=== PATIENT | female | born 1990 | race African-American/Black ===

== ENCOUNTER 2019-03-16 05:51 | Emergency (ER) | payer MEDICAID ==
[~2019-03-16] VITALS: Ht 160 cm; Wt 72.0 kg
[2019-03-16 07:56] VITALS: BP 121/63
[2019-03-16] MEDS ORDERED: ACETAMINOPHEN 325MG TABLET PO ONE (08:30)
== END 2019-03-16 09:22 | disposition left against medical advice (07) ==
LOC: ER 05:51
DX: S00.81XA Abrasion of other part of head, initial encounter (principal); R42 Dizziness and giddiness; M54.2 Cervicalgia; M25.512 Pain in left shoulder; M25.511 Pain in right shoulder; V43.52XA Car driver injured in collision with other type car in traffic accident, initial encounter; Y93.89 Activity, other specified; R07.0 Pain in throat; Y07.03 Male partner, perpetrator of maltreatment and neglect; X99.0XXA Assault by sharp glass, initial encounter; Y92.488 Other paved roadways as the place of occurrence of the external cause
CPT/HCPCS: 99283

== ENCOUNTER 2024-05-19 10:16 | Emergency (ER) | payer MEDICAID ==
[~2024-05-19] VITALS: Ht 165.1 cm; Wt 75.0 kg
[2024-05-19 10:25] VITALS: BP 121/80; PULSE 93; RESP 18; TEMP 98.5; O2SAT 100
[2024-05-19 11:04] LABS: BASOPHILS % 0.4 % (0.0-2.0); EOSINOPHILS % 0.7 % (0.0-5.0); HEMATOCRIT. 39.4 % (36.0-48.0); HEMOGLOBIN. 12.9 g/dL (12.0-16.0); LYMPHOCYTES % 32.7 % (20.0-50.0); MEAN CORPUSCULAR HEMOGLOBIN 31.2 pg (28.0-32.0); MEAN CORPUSCULAR HGB CONC 32.8 g/dL (31.0-37.0); MEAN CORPUSCULAR VOLUME 95.1 fL (81.0-99.0); MEAN PLATELET VOLUME 8.6 fl (7.4-10.4); MONOCYTES % 6.8 % (2.0-8.0); NEUTROPHILS % 59.4 % (40.0-76.0); PLATELET 227 x1000/uL (130-400); RED BLOOD CELL COUNT 4.14 mill/uL (4.2-5.4); RED CELL DISTRIBUTION WIDTH 13.9 % (11.6-14.6); WHITE BLOOD COUNT 7.5 x1000/uL (4.5-11.0)
[2024-05-19 11:12] LABS: CHLORIDE 109 mEq/L (98-107); SODIUM 141 mEq/L (136-145)
[2024-05-19 11:13] LABS: CALCIUM 8.9 mg/dL (8.7-10.4); CARBON DIOXIDE 26 mEq/L (21-32)
[2024-05-19 11:18] LABS: CREATININE 0.7 mg/dL (0.6-1.0); GLUCOSE 103 mg/dL (70-105); UREA NITROGEN BLOOD 6 mg/dL (9-23)
[2024-05-19 11:19] LABS: ETHANOL BLOOD 90 mg/dL (<10)
[2024-05-19 11:20] LABS: ACETAMINOPHEN < 2 ug/mL (10-30); ALANINE AMINOTRANSFERASE 9 IU/L (10-49); ALBUMIN 4.7 g/dL (3.2-4.8); ASPARTATE AMINOTRANSFERASE 20 IU/L (<34); BILIRUBIN TOTAL 0.5 mg/dL (0.1-1.0)
[2024-05-19 11:21] LABS: PROTEIN TOTAL 7.6 g/dL (6.0-8.3)
[2024-05-19 11:36] LABS: HCG SCREEN NEGATIVE
[2024-05-19] MEDS: ONDANSETRON 4MG ODT PO STA (11:45)
[2024-05-19] MEDS: SODIUM CHLORIDE 0.9% 1,000 ML IV ONE (12:25)
[2024-05-19] MEDS: DICYCLOMINE 10 MG/5 ML ORAL SYR PO STA (13:56)
[2024-05-19] MEDS: DICYCLOMINE HCL 10MG CAPSULE PO NR (13:56)
[2024-05-19 14:32] LABS: CLARITY URINE CLOUDY (CLEAR); COLOR URINE YELLOW (YELLOW); GLUCOSE URINE NEGATIVE (NEGATIVE); KETONES URINE NEGATIVE (NEGATIVE); LEUKOCYTE ESTERASE URINE NEGATIVE (NEGATIVE); NITRITE URINE NEGATIVE (NEGATIVE); OCCULT BLOOD URINE 3+ (NEGATIVE); PROTEIN URINE NEGATIVE (NEGATIVE); SPECIFIC GRAVITY URINE 1.019 (1.005-1.030); UROBILINOGEN URINE 0.2 E.U./dL (0.2-1.0)
[2024-05-19 14:52] LABS: BACTERIA URINE 3+; MUCUS URINE TRACE /lpf (< = 2+); SQUAMOUS EPITHELIAL CELL URINE 3+ /lpf (RARE/1+)
[2024-05-19 14:53] LABS: RBC URINE 0-2 /hpf (0-2); WBC URINE 0-2 /hpf (0-2)
[2024-05-19 14:57] LABS: *AMPHETAMINES SCREEN URINE PRESUMPTIVE POSITIVE (NEGATIVE); *BARBITURATES SCREEN URINE NEGATIVE (NEGATIVE); *BENZODIAZEPINES SCREEN URINE PRESUMPTIVE POSITIVE (NEGATIVE); *COCAINE SCREEN URINE PRESUMPTIVE POSITIVE (NEGATIVE)
[2024-05-19 14:58] LABS: CANNABINOID URINE SCREEN PRESUMPTIVE POSITIVE (NEGATIVE); ECSTASY MDMA SCREEN URINE NEGATIVE (NEGATIVE); METHADONE URINE SCREEN NEGATIVE (NEGATIVE); OPIATES URINE SCREEN NEGATIVE (NEGATIVE); PHENCYCLIDINE URINE SCREEN NEGATIVE (NEGATIVE)
== END 2024-05-19 16:17 | disposition left against medical advice (07) ==
LOC: ER 10:16
DX: R51.9 Headache, unspecified (principal); R11.2 Nausea with vomiting, unspecified; F10.129 Alcohol abuse with intoxication, unspecified; Z98.890 Other specified postprocedural states; Y90.4 Blood alcohol level of 80-99 mg/100 ml
CPT/HCPCS: 80053; 80305; 81003; 80307; 80329; 80320; 84703; 83690; 85025; 36415; 96360; 96361; 99283; Q0162; J7030; Z7610 ×2; G0480

== ENCOUNTER 2024-06-25 13:45 | Emergency (ER) | payer MEDICAID ==
[~2024-06-25] VITALS: Ht 157.5 cm; Wt 73.0 kg
[2024-06-25 13:48] VITALS: O2SAT 100
[2024-06-25] MEDS: ACETAMINOPHEN 325MG TABLET PO ONE (15:10)
[2024-06-25] MEDS: MORPHINE SULFATE 4 MG/ML INJ (FOR IV/IM USE) IM ONE (15:11)
[2024-06-25] MEDS: LIDOCAINE 5% PATCH TOP SCH (15:15)
[2024-06-25 16:25] VITALS: BP 110/66; PULSE 75; RESP 17; TEMP 36.66960; O2SAT 100
[2024-06-25] MEDS ORDERED: KETO10TA2 MT (16:43)
[2024-06-25] MEDS ORDERED: LIDO700A15 TP (16:43)
== END 2024-06-25 18:11 | disposition home or self-care (01) ==
LOC: ER 13:45
DX: S22.31XA Fracture of one rib, right side, initial encounter for closed fracture (principal); Z98.890 Other specified postprocedural states; W18.39XA Other fall on same level, initial encounter; Y93.89 Activity, other specified; Y92.89 Other specified places as the place of occurrence of the external cause; Y99.8 Other external cause status
CPT/HCPCS: 81025; 71101; 96372; 99283; J2270; Z7610 ×2

== ENCOUNTER 2024-11-09 23:26 | Emergency (ER) | payer MEDICAID ==
[~2024-11-09] VITALS: Ht 157.5 cm; Wt 70.4 kg
[~2024-11-09 23:26] MED LIST: KETO10TA2 MT; LIDO700A15 TP
[2024-11-10] VITALS: TEMP 98; O2SAT 98
[2024-11-10 00:02] LABS: BASOPHILS % 0.3 % (0.0-2.0); EOSINOPHILS % 0.5 % (0.0-5.0); HEMATOCRIT. 34.9 % (36.0-48.0); HEMOGLOBIN. 11.6 g/dL (12.0-16.0); MEAN CORPUSCULAR HEMOGLOBIN 31.1 pg (28.0-32.0); MEAN CORPUSCULAR HGB CONC 33.3 g/dL (31.0-37.0); MEAN CORPUSCULAR VOLUME 93.4 fL (81.0-99.0); MEAN PLATELET VOLUME 8.6 fl (7.4-10.4); MONOCYTES % 5.3 % (2.0-8.0); NEUTROPHILS % 74.9 % (40.0-76.0); PLATELET 217 x1000/uL (130-400); RED BLOOD CELL COUNT 3.73 mill/uL (4.2-5.4); RED CELL DISTRIBUTION WIDTH 14.4 % (11.6-14.6); WHITE BLOOD COUNT 13.1 x1000/uL (4.5-11.0)
[2024-11-10 00:10] LABS: CARBON DIOXIDE 24 mEq/L (21-32); CHLORIDE 106 mEq/L (98-107); POTASSIUM 3.3 mEq/L (3.5-5.1); SODIUM 139 mEq/L (136-145)
[2024-11-10 00:11] LABS: CALCIUM 9.1 mg/dL (8.7-10.4)
[2024-11-10 00:16] LABS: CREATININE 0.7 mg/dL (0.6-1.0); GLUCOSE 97 mg/dL (70-105)
[2024-11-10 00:35] LABS: CLARITY URINE CLEAR (CLEAR); COLOR URINE YELLOW (YELLOW); GLUCOSE URINE NEGATIVE (NEGATIVE); KETONES URINE NEGATIVE (NEGATIVE); LEUKOCYTE ESTERASE URINE NEGATIVE (NEGATIVE); NITRITE URINE NEGATIVE (NEGATIVE); OCCULT BLOOD URINE NEGATIVE (NEGATIVE); PROTEIN URINE NEGATIVE (NEGATIVE); SPECIFIC GRAVITY URINE 1.026 (1.005-1.030); UROBILINOGEN URINE 0.2 E.U./dL (0.2-1.0)
[2024-11-10 00:36] LABS: UREA NITROGEN BLOOD < 5 mg/dL (9-23)
[2024-11-10] MEDS ORDERED: FOLI0.4T6 MT (02:29)
[2024-11-10] MEDS ORDERED: ACET-2708 MT (02:29)
[2024-11-10] MEDS ORDERED: ACETAMINOPHEN 325MG TABLET PO ONE (02:30)
[2024-11-10 02:42] VITALS: BP 120/75; PULSE 76; RESP 18; O2SAT 100
== END 2024-11-10 02:43 | disposition home or self-care (01) ==
LOC: ER 23:26
DX: R51.9 Headache, unspecified (principal); I10 Essential (primary) hypertension; F10.90 Alcohol use, unspecified, uncomplicated; Y90.9 Presence of alcohol in blood, level not specified
CPT/HCPCS: 36415; 80048; 81003; 81025; 84702; 85025; 99283

== ENCOUNTER 2025-02-05 15:44 | Emergency (ER) | payer MEDICAID ==
[~2025-02-05 15:44] MED LIST changes: +ACET-2708 MT; +FOLI0.4T6 MT
[2025-02-05 15:51] VITALS: PULSE 84; RESP 18; O2SAT 100
== END 2025-02-05 18:32 | disposition left against medical advice (07) ==
LOC: ER 15:44
DX: M79.18 Myalgia, other site (principal); Z53.21 Procedure and treatment not carried out due to patient leaving prior to being seen by health care provider

== ENCOUNTER 2025-10-07 13:09 | Emergency (ER) | payer MEDICAID ==
[~2025-10-07] VITALS: Ht 157.5 cm; Wt 71.0 kg
[~2025-10-07 13:09] MED LIST changes: +LIDO-53 TP; -LIDO700A15 TP
[2025-10-07 13:11] VITALS: O2SAT 100
[2025-10-07 13:18] VITALS: BP 122/74; PULSE 77; RESP 18; TEMP 37; O2SAT 99
[2025-10-07] MEDS: IBUPROFEN 600MG TABLET PO ONE (14:53)
[2025-10-07] MEDS ORDERED: IBUP-1455 MT (16:41)
== END 2025-10-07 16:46 | disposition home or self-care (01) ==
LOC: ER 13:09
DX: J06.9 Acute upper respiratory infection, unspecified (principal); I10 Essential (primary) hypertension; Z20.822 Contact with and (suspected) exposure to COVID-19; Z79.899 Other long term (current) drug therapy
CPT/HCPCS: 87070; 87426; 87430; 99283